=== PATIENT | female | born 1990 | race American Indian/Alaskan Native ===

== ENCOUNTER 2020-04-30 07:58 | Emergency (ER) | payer OTHER ==
[2020-04-30 08:02] VITALS: BP 132/56
[2020-04-30] MEDS ORDERED: DIPHtheria,PERTUSSIS(ACELL),TETANUS VACCINE/PF 0.5 ML VIAL IM ONE (08:25)
--- NOTE | 2020-04-30 08:31 | Emergency Department Report ---
ED Extremity Problem HPI - General Chief complaint: Extremity Injury, Lower Stated complaint: SWOLLEN ANKLE Time Seen by Provider: 04/30/20 08:10 Source: patient Mode of arrival: Ambulatory Limitations: No Limitations - History of Present Illness Initial comments: This pleasant 29-year-old female presents emergency department chief complaint of right ankle pain. 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 She woke up the next morning and had swelling and pain. She reports small abrasion above the ankle. She reports she has been able to walk on it with only minimal pain. She denies any known past medical history, current medication use or known allergies to medications. Pain is rated as a 5 out of 10. She denies any associated fever, chills, night sweats, headache, dizziness, blurry vision, nausea, vomiting, diarrhea, chest pain, shortness of breath. - Related Data Previous Rx's Medication Instructions Recorded Last Taken Type Naproxen 500 mg PO BID #20 tablet 04/30/20 Unknown Rx Naproxen [Naprosyn TAB] 500 mg PO TID #30 tablet 04/30/20 Unknown Rx Allergies Allergy/AdvReac Type Severity Reaction Status Date / Time No Known Allergies Allergy Unverified 04/23/20 11:42 ED Review of Systems ROS: Stated complaint: SWOLLEN ANKLE Other details as noted in HPI Comment: All other systems reviewed and negative Constitutional: denies: chills, fever Eyes: denies: eye pain, eye discharge, vision change ENT: denies: ear pain, throat pain Respiratory: denies: cough, shortness of breath, wheezing Cardiovascular: denies: chest pain, palpitations Endocrine: no symptoms reported Gastrointestinal: denies: abdominal pain, nausea, diarrhea Genitourinary: denies: urgency, dysuria, discharge Musculoskeletal: as per HPI, joint swelling. denies: back pain, arthralgia Skin: denies: rash, lesions Neurological: denies: headache, weakness, paresthesias Psychiatric: denies: anxiety, depression Hematological/Lymphatic: denies: easy bleeding, easy bruising ED Past Medical Hx - Past Medical History Previous Medical History?: No - Social History Smoking Status: Current Every Day Smoker Substance Use Type: Alcohol - Medications Home Medications: Home Medications Medication Instructions Recorded Confirmed Last Taken Type Naproxen 500 mg PO BID #20 tablet 04/30/20 Unknown Rx Naproxen [Naprosyn TAB] 500 mg PO TID #30 tablet 04/30/20 Unknown Rx ED Physical Exam - General Limitations: No Limitations General appearance: alert, in no apparent distress - Head Head exam: Present: atraumatic, normocephalic - Eye Eye exam: Present: normal appearance, PERRL, EOMI Pupils: Present: normal accommodation - ENT ENT exam: Present: normal exam, normal orophraynx, mucous membranes moist - Neck Neck exam: Present: normal inspection, full ROM. Absent: tenderness, meningismus - Respiratory Respiratory exam: Present: normal lung sounds bilaterally. Absent: respiratory distress, wheezes, rales, rhonchi, stridor - Cardiovascular Cardiovascular Exam: Present: regular rate, normal rhythm, normal heart sounds. Absent: systolic murmur, diastolic murmur, rubs, gallop - GI/Abdominal GI/Abdominal exam: Present: soft, normal bowel sounds. Absent: distended, tenderness, guarding, rebound, rigid - Extremities Exam Extremities exam: Present: normal inspection, full ROM, other (There is a small 2 mm abrasion to the anterior right ankle with no ecchymosis, induration or erythema.). Absent: tenderness (There is no tenderness to the medial or lateral malleolus, no tenderness to the base of the fifth metatarsal, no tenderness to the calcaneus, normal passive range of motion without pain. Able to ambulate without pain.), calf tenderness (No posterior calf tenderness, negative Homans sign bilaterally.) - Back Exam Back exam: Present: normal inspection, full ROM. Absent: tenderness, CVA tenderness (R), CVA tenderness (L) - Neurological Exam Neurological exam: Present: alert, oriented X3 - Psychiatric Psychiatric exam: Present: normal affect, normal mood - Skin Skin exam: Present: warm, dry, intact, normal color. Absent: rash ED Course Vital Signs 04/30/20 08:00 Temperature 98.1 F Pulse Rate 59 L Blood Pressure 132/56 ED Medical Decision Making - Medical Decision Making The patient is nontoxic in no acute distress. The Morrill criteria of the right ankle and foot is negative and no imaging was indicated. I did offer to order an x-ray however the patient politely declined. The patient did have a small abrasion and her tetanus vaccine was updated in the emergency department. I will send her home on a short course of Keflex and naproxen and recommended rest, ice, compression and elevation. Patient was instructed to follow-up with primary care doctor for wound reevaluation or return to the emerge part for any changing worsening symptoms. She verbalized understanding the diagnosis, treatment plan and follow-up instructions and all of her questions were answered . - Differential Diagnosis Abrasion, contusion, fracture Critical care attestation.: If time is entered above; I have spent that time in minutes in the direct care of this critically ill patient, excluding procedure time. ED Disposition Clinical Impression: Contusion of right ankle, initial encounter, Abrasion, right ankle, initial encounter Disposition: DC- TO HOME OR SELFCARE Is pt being admited?: No Condition: Stable Instructions: Abrasion (ED) Prescriptions: Naproxen [Naprosyn TAB] 500 mg PO TID #30 tablet Naproxen 500 mg PO BID #20 tablet Referrals: [facility] [Provider Group] - 3-5 Days Forms: Work/School Release Form(ED) Time of Disposition: 08:31
== END 2020-04-30 08:49 | disposition home or self-care (01) ==
LOC: ED 07:58
DX: S90.01XA Contusion of right ankle, initial encounter (principal); S90.511A Abrasion, right ankle, initial encounter; F17.200 Nicotine dependence, unspecified, uncomplicated; Z79.899 Other long term (current) drug therapy; X58.XXXA Exposure to other specified factors, initial encounter; Y93.89 Activity, other specified; Y92.89 Other specified places as the place of occurrence of the external cause; Y99.8 Other external cause status
CPT/HCPCS: 90471; 90715; 99281

== ENCOUNTER 2021-09-15 08:40 | Outpatient (CLI) | payer MEDICAID, OTHER ==
[2021-09-15] MEDS ORDERED: ACETAMINOPHEN 500 MG TAB PO ONE (08:55)
[2021-09-15] MEDS ORDERED: LACTATED RINGERS 1,000 ML IV ONE (11:16)
[2021-09-15] MEDS ORDERED: ACETAMINOPHEN 500 MG TAB ONE (11:52)
[2021-09-15 12:01] LABS: Amorphous Crystals,Urine 1+; Bilirubin,Urine NEG (Negative); Blood,Urine NEG (Negative); Color,Urine Yellow (Yellow); Mucus,Urine FEW /HPF; Protein,Urine <15 mg/dL mg/dL (Negative)
[2021-09-15 12:02] LABS: RBC,Urine < 1.0 /HPF (0.0-6.0)
[2021-09-15 12:16] VITALS: BP 112/67
--- NOTE | 2021-09-15 13:33 | Ultrasound Report ---
ULTRASOUND OBSTETRIC LIMITED INDICATION / CLINICAL INFORMATION: well being. Clinical Gestational Age (GA) in weeks, days: Reported as 24 weeks 0 days TECHNIQUE: Transabdominal. COMPARISON: None available. FINDINGS: HEART RATE (beats per minute): 135 AMNIOTIC FLUID INDEX (cm) = 14.5 (normal = 7-24 cm) PRESENTATION: Cephalic. ADDITIONAL FINDINGS: Posterior placenta is within normal limits. IMPRESSION: No significant abnormality. Single live intrauterine in cephalic presentation. Signer Name: Zane Loving MD Signed: 09/15/2021 1:28 PM Workstation Name: [id number]
== END 2021-09-15 13:00 | disposition home or self-care (01) ==
LOC: EDSTATUS 09:07 → TRG 09:10 → APU 09:22 → TRG 13:00
PROVIDERS: ATTEND Obstetrics & Gynecology
DX: Z34.92 Encounter for supervision of normal pregnancy, unspecified, second trimester (principal); Z3A.24 24 weeks gestation of pregnancy
CPT/HCPCS: 59025; 76815; 81001